=== PATIENT | male | born 1955 | race Caucasian/White ===

== ENCOUNTER 2017-04-16 10:18 | Outpatient (CLI) | payer OTHER ==
[~2017-04-16] VITALS: Ht 170.2 cm; Wt 68.0 kg
[2017-04-16 10:23] LABS: BASOPHILS % (AUTO) 1.2 % (0.0-2.0); EOSINOPHILS % (AUTO) 1.5 % (0.0-3.0); LYMPHOCYTES % (AUTO) 22.6 % (20.0-45.0); MEAN CORPUSCULAR HEMOGLOBIN 33.3 PG (27.0-31.0); MEAN CORPUSCULAR HGB CONC 31.7 G/DL (32.0-36.0); MEAN CORPUSCULAR VOLUME 105 FL (80-99); MONOCYTES % (AUTO) 8.8 % (1.0-10.0); PLATELET COUNT 200 K/UL (150-450); RED BLOOD COUNT 4.32 M/UL (4.70-6.10); RED CELL DISTRIBUTION WIDTH 12.8 % (11.6-14.8)
[2017-04-16 10:34] LABS: PROTHROMBIN TIME 10.7 SEC (9.30-11.50)
[2017-04-16] MEDS ORDERED: Lidocaine 1% Plain 30 ml INJ ONE (11:15)
--- NOTE | 2017-04-16 12:55 | Pre-Procedure Note/Attestation ---
Pre-Procedure Note/Attestation Complete Prior to Procedure Planned Procedure: left Procedure Narrative: US guide neck mass biopsy Indications for Procedure Pre-Operative Diagnosis: neck mass Attestation I attest that I discussed the nature of the procedure; its benefits; risks and complications; and alternatives (and the risks and benefits of such alternatives ), prior to the procedure, with the patient (or the patient's legal applications sales representative). I attest that, if there was a reasonable possibility of needing a blood transfusion, the patient (or the patient's legal applications sales representative) was given the [facility] standardized written summary, pursuant to the [employer] Blood Safety Act ([place] Health and Safety Code # 1645, as amended). I attest that I re-evaluated the patient just prior to the surgery and that there has been no change in the patient's H&P, except as documented below: LIDIA BARTHOLOMEW M.D. Apr 16, 2017 12:55
--- NOTE | 2017-04-16 15:01 | Diagnostic Imaging Report ---
Indication: MASS left submandibular mass Technique: Informed consent obtained prior to commencement of the procedure. Procedure timeout performed. Skin was sterilely prepped and draped. Local anesthesia with 1% lidocaine. Under real-time ultrasound guidance, a 17-gauge guide needle was placed in the posterior periphery of the target mass. Total of 5 passes then made with a coaxially inserted 18-gauge automated biopsy gun. Specimens submitted to the pathologist. The patient tolerated the procedure well, without immediate complication.. Comparison: Ultrasound dated 04/11/2017 Findings: Intraprocedural images document needle placement within the target mass Impression: Left submandibular mass biopsy, as described. Final pathology pending
== END 2017-04-16 12:18 | disposition home or self-care (01) ==
LOC: RAD 10:18 → EDSTATUS 11:00 → RAD 12:18
DX: R22.1 Localized swelling, mass and lump, neck (principal)
CPT/HCPCS: 36415; 60100; 76942; 85025; 85610; 85730; J2001